=== PATIENT | male | born 1990 | race Caucasian/White ===

== ENCOUNTER 2023-05-20 14:41 | Outpatient (CLI) | payer OTHER, SELFPAY | END 2023-05-20 14:42 | disposition home or self-care (01) | LOC: AMB 06-02 10:59 | PROVIDERS: Visit Provider Emergency Medicine Emergency Medical Services | DX: S89.92XA Unspecified injury of left lower leg, initial encounter (principal); S99.912A Unspecified injury of left ankle, initial encounter; V00.842A Pedestrian on standing electric scooter colliding with stationary object, initial encounter; Y92.512 Supermarket, store or market as the place of occurrence of the external cause | CPT/HCPCS: A0425; A0427 ==